=== PATIENT | male | born 1980 | race Two or more races ===

== ENCOUNTER 2025-04-21 15:49 | Inpatient (IN) | payer OTHER ==
[2025-04-21 16:41] VITALS: BMI 29.9
[2025-04-21 17:53] LABS: MCHC 35.2 g/dl (32.3-36.5); RDW 15.5 % (12.1-15.9)
[2025-04-21 17:55] LABS: HEMATOCRIT 37.2 % (40.1-51.0); HEMOGLOBIN 13.1 g/dL (13.7-17.5); MEAN CELL VOLUME 83.8 fl (79.0-92.2)
[2025-04-21 18:02] LABS: INR 1.74 (0.83-1.09)
[2025-04-21 18:04] LABS: ACTIVATED PTT 27.1 SECONDS (25.2-36.5)
[2025-04-21 18:16] LABS: POTASSIUM 3.9 mmol/L (3.5-5.1)
[2025-04-21 18:19] LABS: BLOOD UREA NITROGEN 5.2 mg/dL (7-18); CALCIUM 8.6 mg/dL (8.5-10.1)
[2025-04-21 18:22] LABS: CREATININE 0.6 mg/dL (0.55-1.3)
[2025-04-21 18:24] LABS: BILIRUBIN,TOTAL 3.4 mg/dL (0.2-1); TOT PROT 6.5 g/dl (6.4-8.2)
[2025-04-21 19:02] LABS: PLATELET COUNT 15 x10^3/uL (163-337)
[2025-04-21 20:19] LABS: ABSOLUTE IMMATURE GRANULOCYTES 0.02 x10^3/uL (0.0-0.031); BASOPHILS # 0.01 x10^3/uL (0.01-0.08); EOSINOPHIL % 3.2 % (0.8-7.0); EOSINOPHILS # 0.06 x10^3/uL (0.04-0.54); MONOCYTE # 0.16 x10^3/uL (0.30-0.82); MONOCYTE % 8.5 % (5.3-12.2); Reticulocyte % 3.25 % (0.51-1.81)
[2025-04-21] MEDS ORDERED: LORazepam 1 MG TABLET PO PRN (21:53)
[2025-04-21 23:39] VITALS: RESP 18
[2025-04-21] MEDS: LORazepam 1 MG TABLET PO SCH (23:50)
[2025-04-21] MEDS: SODIUM CHLORIDE 1,000 ML IV SCH (23:51)
[2025-04-22 07:55] LABS: HEMOGLOBIN 12.9 g/dL (13.7-17.5)
[2025-04-22 07:57] LABS: HEMATOCRIT 37.6 % (40.1-51.0); MCHC 34.3 g/dl (32.3-36.5); MEAN CELL VOLUME 84.9 fl (79.0-92.2); PLATELET COUNT 13 x10^3/uL (163-337)
[2025-04-22 08:09] LABS: INR 1.88 (0.83-1.09); PROTHROMBIN TIME (PATIENT) 20.7 SEC (9.7-13.0)
[2025-04-22 08:22] LABS: POTASSIUM 3.2 mmol/L (3.5-5.1)
[2025-04-22 08:31] LABS: ALBUMIN 2.8 g/dl (3.4-5.0); CALCIUM 8.1 mg/dL (8.5-10.1)
[2025-04-22 08:33] LABS: BLOOD UREA NITROGEN 6.2 mg/dL (7-18); MAGNESIUM 1.5 mg/dL (1.8-2.4)
[2025-04-22 08:34] LABS: PHOSPHOROUS 2.7 mg/dL (2.5-4.9)
[2025-04-22 08:35] LABS: BILIRUBIN,TOTAL 3.9 mg/dL (0.2-1); CREATININE 0.5 mg/dL (0.55-1.3)
[2025-04-22 08:36] LABS: TOT PROT 5.9 g/dl (6.4-8.2)
[2025-04-22] MEDS: FOLIC ACID 1 MG TABLET (FP) PO SCH (10:25)
[2025-04-22] MEDS: THIAMINE 100 MG TABLET PO SCH (10:25)
[2025-04-22] MEDS: MAGNESIUM SULFATE IN WATER 2 GM/50 ML IVPB IVPB ONE (10:25)
[2025-04-22] MEDS: POTASSIUM CHLORIDE ORAL LIQUID 20 MEQ/15 ML PO ONE (10:25)
[2025-04-22 14:18] LABS: HEPATITIS B SURF AG NON-MATERN NON-REACTIVE (NONREACTIVE)
[2025-04-22 14:45] LABS: HIV INTERPRETATION NEGATIVE (NEGATIVE)
[2025-04-22 14:46] LABS: HCV DIAGNOSTIC IN-HOUSE W/RFLX NON-REACTIVE (NONREACTIVE)
[2025-04-22 20:06] LABS: Reticulocyte % 3.15 % (0.51-1.81)
[2025-04-22 20:39] VITALS: BP 124/79; PULSE 75; TEMP 97.9
[2025-04-23] MEDS ORDERED: LORazepam 1 MG TABLET PO SCH (05:00)
[2025-04-24] MEDS ORDERED: LORazepam 0.5 MG TABLET PO PRN
[2025-04-24] MEDS ORDERED: LORazepam 0.5 MG TABLET PO SCH (05:00)
[2025-04-25] MEDS ORDERED: LORazepam 0.5 MG TABLET PO ONE (05:00)
== END 2025-04-22 21:52 | disposition left against medical advice (07) | DRG 660 ==
LOC: JER 15:49 → JERBED 19:09 → J7W 23:17
PROVIDERS: ADMIT Student in an Organized Health Care Education/Training Program; ATTEND Physician Assistant
DX: D61.818 Other pancytopenia (principal); E83.42 Hypomagnesemia; F10.10 Alcohol abuse, uncomplicated; K70.9 Alcoholic liver disease, unspecified; E80.6 Other disorders of bilirubin metabolism; D64.9 Anemia, unspecified; R74.01 Elevation of levels of liver transaminase levels; E87.6 Hypokalemia
CPT/HCPCS: 36415; 76705-TC; 80053; 82607; 82728; 82746; 83540; 83550; 83735; 84100; 85025; 85610; 85730; 86705; 86803; 86850; 86900; 86901; 87340; 87389; 87517; 93005; 93010; 99285-25